=== PATIENT | female | born 1940 | race Caucasian/White ===

== ENCOUNTER 2018-09-16 06:03 | Day surgery (SDC) | payer MEDICARE, OTHER ==
[2018-09-16] MEDS: Sodium Chloride 0.9% 1,000 ML IV SCH ×3 (06:25→19:11)
[2018-09-16] MEDS ORDERED: Lidocaine 1% with EPINEPHrine 1:100,000 50 ML MDV ONE (06:49)
[2018-09-16] MEDS ORDERED: Bupivacaine 0.5% 50 ML MDV ONE (06:49)
[2018-09-16] MEDS ORDERED: Isosulfan Blue 5 ML SDV ONE (06:57)
[2018-09-16] MEDS ORDERED: ceFAZolin 2 GM in Premix Bag 1 BAG IV ONE (08:00)
[2018-09-16] MEDS ORDERED: Lidocaine 1% 20 ML MDV INJECT ONE (08:15)
[2018-09-16] MEDS ORDERED: Neostigmine Methylsulfate 1 MG/ML 5 ML Syringe ONE (08:26)
[2018-09-16] MEDS ORDERED: Ondansetron 4 MG/2 ML SDV ONE (08:26)
[2018-09-16] MEDS ORDERED: fentaNYL 250 MCG/5 ML SDV ONE (08:26)
[2018-09-16] MEDS ORDERED: Rocuronium 50 MG/5 ML Vial ONE (08:26)
[2018-09-16] MEDS ORDERED: Glycopyrrolate 0.2 MG/ML 5 ML MDV ONE (08:26)
[2018-09-16] MEDS ORDERED: Dexamethasone 4 MG/ML SDV ONE (08:26)
[2018-09-16] MEDS ORDERED: Propofol 200 MG/20 ML SDV ONE (08:26)
[2018-09-16] MEDS ORDERED: Ondansetron 4 MG Tab.DIS PO PRN (08:54)
[2018-09-16] MEDS ORDERED: Benzocaine/Cetylpyridinium/Menthol Lozenge MUCMEM PRN (08:54)
[2018-09-16] MEDS ORDERED: Promethazine 25 MG/ML SDV IM PRN (08:54)
[2018-09-16] MEDS ORDERED: Ondansetron 4 MG/2 ML SDV IVPUSH PRN (08:54)
[2018-09-16] MEDS ORDERED: diphenhydrAMINE 50 MG/ML SDV IVPUSH PRN (08:54)
[2018-09-16] MEDS ORDERED: Acetaminophen/HYDROcodone 325-5 MG Tab PO PRN ×3 (08:54)
[2018-09-16] MEDS ORDERED: fentaNYL 100 MCG/2 ML SDV IVPUSH PRN ×4 (08:54)
[2018-09-16] MEDS ORDERED: hydrOXYzine HCl 100 MG/2 ML SDV IM PRN (08:54)
[2018-09-16] MEDS ORDERED: ePHEDrine 50 MG/ML SDV ONE (09:06)
[2018-09-16] MEDS ORDERED: fentaNYL/Normal Saline 600 MCG/30 ML PCA Vial IV PRN (09:08)
[2018-09-16] MEDS ORDERED: Naloxone 0.4 MG/ML SDV IVPUSH PRN (09:08)
[2018-09-16] MEDS ORDERED: Lidocaine 2% Jelly 30 ML Tube ONE (10:24)
--- NOTE | 2018-09-16 13:52 | NM ---
Lymphoscintigraphy CLINICAL HISTORY: Right breast carcinoma FINDINGS: Scintigraphic images were obtained over the upper chest following subcuticular periareolar injections by Dr. Briones with a total dose of 1.6 mCi of technetium 99m sulfur colloid. Scintigraphic images show [artifact at the periareolar region. There is a small nodular focus in the upper outer region of the breast towards the axillary tail which is felt to be a sentinel node IMPRESSION: Lymphoscintigraphy described above
[2018-09-16] MEDS: ceFAZolin 2 GM in Premix Bag 1 BAG IV SCH (15:18)
[2018-09-16] MEDS: Ketorolac 30 MG/ML SDV IM SCH ×3 (15:18→21:47)
[2018-09-16] MEDS: Enoxaparin 40 MG/0.4 ML Syringe SUBCUT SCH (15:18)
[2018-09-16] MEDS: Acetaminophen/HYDROcodone 325-5 MG Tab PO PRN (19:35)
[2018-09-17] MEDS: ceFAZolin 2 GM in Premix Bag 1 BAG IV SCH (00:24)
[2018-09-17] MEDS: Ketorolac 30 MG/ML SDV IM SCH ×2 (02:07→08:56)
[2018-09-17] MEDS: Acetaminophen/HYDROcodone 325-5 MG Tab PO PRN (03:20)
[2018-09-17] MEDS: Sodium Chloride 0.9% 1,000 ML IV SCH (03:26)
[2018-09-17] MEDS ORDERED: Metoprolol Succinate 50 MG Tab.ER PO SCH (09:00)
[2018-09-17] MEDS ORDERED: Multivitamins with Iron/Calcium/Folic Acid/Minerals Tab PO SCH (09:00)
[2018-09-17] MEDS ORDERED: buPROPion 150 MG Tab.SR PO SCH (09:00)
[2018-09-17] MEDS ORDERED: Lisinopril 10 MG Tab PO SCH (09:00)
[2018-09-17] MEDS ORDERED: Hydrochlorothiazide 25 MG Tab PO SCH (09:00)
[2018-09-17] MEDS ORDERED: Calcium Carbonate/Vitamin D3 1500 MG-400 Units Tab PO SCH (09:00)
[2018-09-17] MEDS ORDERED: Aspirin 81 MG Tab.EC PO SCH (09:00)
[2018-09-17] MEDS ORDERED: Ascorbic Acid 500 MG Tab PO SCH (09:00)
[2018-09-17] MEDS ORDERED: Fish Oil/Omega-3 Fatty Acids 1 Gm Cap PO SCH (09:00)
--- NOTE | 2018-09-17 09:09 | PN ---
DATE OF SERVICE: 09/17/2018 SUBJECTIVE: The patient is doing quite well today. Pain is well controlled on essentially no narcotics. No nausea, vomiting, shortness of breath, or chest pain. OBJECTIVE: VITAL SIGNS: Stable, afebrile per nursing report. CARDIOVASCULAR: Regular rhythm and rate. RESPIRATORY: Lungs are clear to auscultation bilaterally. SKIN: Dressings are intact with no evidence of strike through. Drain output is serosanguineous and acceptable limits. LABORATORY DATA: Laboratory results show acceptable norms. ASSESSMENT: Status post mastectomy. PLAN: The patient continues through her day. She is on regular diet, home medications. She will be evaluated later today for possible discharge. Mathew Briones MD /[id number]
[2018-09-17] MEDS ORDERED: Levothyroxine 100 MCG Tab PO SCH (11:00)
[2018-09-17] MEDS ORDERED: Levothyroxine 25 MCG Tab PO SCH (11:00)
--- NOTE | 2018-09-17 13:24 | OR ---
DATE OF PROCEDURE: 09/16/2018 SURGEON: Mathew Briones MD PROCEDURES: 1. Radioactive isotope injection (technetium-99m) to evaluate sentinel node, right breast. 2. Lymphazurin blue dye injection to evaluate sentinel node, right axilla. COMPLICATIONS: None. HEALTH TECHNICAL WRITER: None. PREOPERATIVE DIAGNOSIS: Breast cancer. POSTOPERATIVE DIAGNOSIS: Breast cancer. RISKS: Risks, benefits, alternatives, and limitations including, but not limited to infection, bleeding, and allergic reactions were also explained to the patient, who wished to proceed. PROCEDURE IN DETAIL: The patient was placed in supine position. The right breast was readily identified. These would be periareolar injections. The technetium was injected in four separate aliquots in the periareolar fashion. This was performed in the Nuclear Medicine suite. With respect to Lymphazurin blue, this was also periareolar injection and total of 4 mL would be injected in subcutaneous fashion in four separate locations. The patient tolerated the procedure well. Mathew Briones MD /[id number]
[2018-09-17] MEDS: Enoxaparin 40 MG/0.4 ML Syringe SUBCUT SCH (14:25)
--- NOTE | 2018-09-17 15:08 | PCM.CONS ---
H&P History of Present Illness - General Date of Service: 09/17/18 Admit Problem/Dx: Admission Diagnosis/Problem Admission Diagnosis/Problem Breast lump Source of Information: Patient History Limitations: Reports: No Limitations - History of Present Illness Initial Comments - Free Text/Narative: Cally was admitted yesterday for a right mastectomy. I was asked to see her today regarding left-sided weakness as well as numbness and tingling that started at 2:10 PM today. Patient reports acute onset of left arm numbness and tingling as well as left leg numbness and tingling while she was sitting in the chair. This was associated with weakness of both the arm and the leg as well as some difficulty with coordination. She does not report headache, blurry vision or difficulty with speech. She was unable to put any weight on the leg when trying to get from the chair back into bed. No complaints of chest pain or shortness of breath. Mastectomy pain has been well-controlled. No history of cerebrovascular disease or atrial fibrillation. - Related Data Allergies/Adverse Reactions: Allergies Allergy/AdvReac Type Severity Reaction Status Date / Time No Known Allergies Allergy Verified 09/16/18 06:47 Home Medications: Home Meds Acetaminophen 3 tab PO Q4HR PRN 09/13/18 [History] Ascorbic Acid [Acerola C] 500 mg PO DAILY 09/13/18 [History] Aspirin [Halfprin] 81 mg PO DAILY 09/13/18 [History] Calcium Carbonate/Vitamin D3 [Calcium Carbonate/Vitamin D 600 MG-200 Unit] 1 tab PO BID 09/13/18 [History] Garlic 1,500 mg PO DAILY 09/13/18 [History] Levothyroxine 175 mcg PO ACBREAKFAST 09/13/18 [History] Lisinopril [Prinivil] 10 mg PO DAILY 09/13/18 [History] Metoprolol Succinate [Toprol XL 50mg] 50 mg PO DAILY 09/13/18 [History] Multivitamin [Multi-Vitamin Daily] 1 each PO DAILY 09/13/18 [History] [place]-3/DHA/Epa/Fish Oil [[place]-3 Fish Oil 1,000 MG Sfgl] 1,000 mg PO DAILY [History] Simvastatin [Zocor] 20 mg PO BEDTIME 09/13/18 [History] buPROPion [buPROPion XL] 150 mg PO BID 09/13/18 [History] hydroCHLOROthiazide [Hydrochlorothiazide] 25 mg PO DAILY 09/13/18 [History] Past Medical History Cardiovascular History: Reports: High Cholesterol, Hypertension CHEMICAL DEPENDENCY NURSE History: Reports: Oncologic (Cancer) History: Reports: Breast - Infectious Disease History Infectious Disease History: Reports: Chicken Pox, Measles, Mumps - Past Surgical History HEENT Surgical History: Reports: Adenoidectomy, Cataract Surgery, Tonsillectomy Female Surgical History: Reports: Hysterectomy, Mastectomy Endocrine Surgical History: Reports: Thyroidectomy Musculoskeletal Surgical History: Reports: Hip Replacement, Knee Replacement Social & Family History - Family History Family Medical History: Noncontributory - Tobacco Use Smoking Status *Q: Former Smoker Used Tobacco, but Quit: Yes Month/Year Tobacco Last Used: 1983 - Caffeine Use Caffeine Use: Reports: Coffee - Alcohol Use Alcohol Use History: No - Recreational Drug Use Recreational Drug Use: No H&P Review of Systems - Review of Systems: Review Of Systems: See Below Free Text/Narrative: A complete 12 point review of systems was obtained. Pertinent positives and negatives are noted in the history of present illness. All other systems were reviewed and were negative except as noted. Exam - Exam Exam: See Below - Vital Signs Vital Signs: Last Vital Signs Temp 36.1 C 09/17/18 14:18 Pulse 82 09/17/18 14:18 Resp 18 09/17/18 14:18 BP 153/78 H 09/17/18 14:18 Pulse Ox 95 09/17/18 14:18 Weight: 111.72 kg - Exam Quality Assessment: No: Supplemental Oxygen General: Alert, Oriented, Cooperative. No: Mild Distress HEENT: Conjunctiva Clear, Mucosa Moist & [place]. No: Scleral Icterus Neck: Supple. No: Lymphadenopathy Lungs: Clear to Auscultation, Normal Respiratory Effort Cardiovascular: Regular Rate, Regular Rhythm GI/Abdominal Exam: Soft, No Distention Extremities: No Pedal Edema, Other (Right arm and shoulder wrapped with JOSHUA bandages) Skin: Warm, Dry Neuro Extensive - Mental Status: Alert, Oriented x3, Nl Response to Commands Neuro Extensive - Motor, Sensory, Reflexes: Facial palsy (L), Abnormal Motor ( left arm and leg much weaker than on the right ). No: Dysarthria, Tremor Psychiatric: Alert, Normal Affect - Patient Data Lab Results Last 24 hrs: Laboratory Results - last 24 hr 09/17/18 09/17/18 Range/Units 04:50 04:50 WBC 16.0 H (4.5-11.0) K/uL RBC 3.67 (3.30-5.50) M/uL Hgb 11.1 L (12.0-15.0) g/dL Hct 35.9 L (36.0-48.0) % MCV 98 (80-98) fL MCH 30 (27-31) pg MCHC 31 L (32-36) % Plt Count 354 (150-400) K/uL Sodium 139 L (140-148) mmol/L Potassium 4.0 (3.6-5.2) mmol/L Chloride 105 (100-108) mmol/L Carbon Dioxide 28 (21-32) mmol/L Anion Gap 10.0 (5.0-14.0) mmol/L BUN 22 H (7-18) mg/dL Creatinine 1.1 H (0.6-1.0) mg/dL Est Cr Clr Drug Dosing 41.75 mL/min Estimated GFR (MDRD) 48 L (>60) Glucose 110 H (74-106) mg/dL Calcium 8.3 L (8.5-10.1) mg/dL Result Diagrams: 09/17/18 04:50 09/17/18 04:50 Imaging Impressions Last 24 hrs: Head CT - images personally reviewed - normal non-contrast head ct, no mass, infarct or lesion Consult PN Assessment/Plan POD#: 1 (1) S/P right mastectomy SNOMED Code(s): 093981303, 696190503 Code(s): Z90.11 - ACQUIRED ABSENCE OF RIGHT BREAST AND NIPPLE Current Visit : Yes (2) Acute CVA (cerebrovascular accident) SNOMED Code(s): 491628367, 268939313 Code(s): I63.9 - CEREBRAL INFARCTION, UNSPECIFIED Current Visit: Yes Problem List Initiated/Reviewed/Updated: Yes My Orders Last 24 Hours: My Active Orders 09/17/18 14:38 Head wo Cont [CT] Routine Plan: ASSESSMENT AND RECOMMENDATIONS - Right CVA - acute with onset at 1415 today. Sx's of left arm and leg weakness as well as signs including facial droop and mild speech troubles. Exam c/w acute CVA. Risk factors include HTN and dyslipidemia. Head Ct negative. CT angio of the head with no large vessel occlusion. Pt has received aspirin before leaving. Discussed with Neuro and Interventional Neuro. Not a candidate for TPA with surgery yesterday. Planning transfer to tertiary center. -transfer to [facility] Griffin Fraga MD Requesting Provider: Dr Briones Date Consult Requested: 09/17/18 Reason for Consult: left sided weakness Patient History Reviewed: Yes Admission H&P Reviewed: No Notified Requestor: Yes Time Spent (in minutes): 90
--- NOTE | 2018-09-17 15:19 | CRLCT ---
INDICATION: Left-sided weakness. COMPARISON: None available. TECHNIQUE: CT examination of the head was performed with 3 mm thick axial sections without intravenous contrast. Images were obtained from the vertex of the skull through the skull base, and I examined the images with the brain and bone windows. Please note that all CT scans at this facility use dose modulation, iterative reconstruction, and/or weight-based dosing when appropriate to reduce radiation dose to as low as reasonably achievable. FINDINGS: : The brain is normal in appearance for the patient`s age on today`s study, with no sign of mass lesion, mass effect, hemorrhage, or edema. There is mild dilatation of the ventricles and sulci representing age-appropriate atrophy. There is mild periventricular and subcortical white matter hypodensity from age appropriate small vessel ischemia. There are changes of right cataract surgery. The orbits are otherwise normal in appearance. The visualized portions of the paranasal sinuses and mastoids are clear. The osseous structures are normal in their appearance with no sign of abnormality in the skull base or calvarium. IMPRESSION: Normal noncontrast CT of the head for the patient`s age. Mild, age-appropriate atrophy and mild small vessel ischemic changes. Please note that all CT scans at this facility use dose modulation, iterative reconstruction, and/or weight-based dosing when appropriate to reduce radiation dose to as low as reasonably achievable. Dictated by Dario Florence MD @ Sep 17 2018 3:14PM Signed by Dr. Dario Florence @ Sep 17 2018 3:16PM
[2018-09-17] MEDS ORDERED: Sodium Chloride 0.9% 100 ML IV ONE (15:48)
[2018-09-17] MEDS ORDERED: Sodium Chloride 0.9% 10 ML Syringe FLUSH PRN (15:48)
[2018-09-17] MEDS ORDERED: Iopamidol 755 Mg/ML 100 ML Bottle IV SCH (16:00)
--- NOTE | 2018-09-17 16:54 | CRLCT ---
INDICATION: Left-sided weakness. TECHNIQUE: High-resolution axial CT images were acquired through the head following the rapid intravenous administration of iodinated contrast. Multiplanar MIPS and 3D reconstructions of the cranial vasculature performed as well. FINDINGS: There is no large vessel occlusion or significant intracranial stenosis. No aneurysm or vascular malformation is identified. The underlying brain parenchyma is unremarkable at CTA. IMPRESSION: No large vessel occlusion. No acute intracranial abnormality by CTA. Please note that all CT scans at this facility use dose modulation, iterative reconstruction, and/or weight-based dosing when appropriate to reduce radiation dose to as low as reasonably achievable. Dictated by Kaden Goodwin MD @ Sep 20 2018 2:31PM Signed by Dr. Kaden Goodwin @ Sep 20 2018 3:26PM
[2018-09-17] MEDS ORDERED: Aspirin 81 MG Tab.Chew PO ONE (16:58)
--- NOTE | 2018-09-17 17:06 | PCM.DCSUM1 ---
Discharge Summary - Hospital Course Brief History: 78 female with hx of HTN, dyslipidemia and recent diagnosis of breast cancer who was admitted 09/16 after an uncomplicated modified radical mastectomy. Diagnosis: Stroke: Yes Modified Hamilton Scale: Mod.Sev.Disability ;Unable to Walk/Attend Bodily Needs W/ O Assistance Modified Hamilton Scale Score: 4 - Discharge Data Discharge Date: 09/17/18 Discharge Disposition: DC/Tfer to Acute Hospital 02 Condition: Stable - Discharge Diagnosis/Problem(s) (1) S/P right mastectomy SNOMED Code(s): 585829262, 719528721 ICD Code: Z90.11 - ACQUIRED ABSENCE OF RIGHT BREAST AND NIPPLE Status: Acute Current Visit: Yes (2) Acute CVA (cerebrovascular accident) SNOMED Code(s): 902980761, 450174864 ICD Code: I63.9 - CEREBRAL INFARCTION, UNSPECIFIED Status: Acute Current Visit: Yes - Patient Summary/Data Consults: Consultations 09/16/18 08:55 Consult to Case Management/Barrel And Receiver Aligner [CONS] Routine Comment: Physician Instructions: Consult Reach to Recovery post mastectomy Service(s) to be Consulted: Case Management Reason for Consult: Status post mastectomy Special Instructions: Consult Reach to Recovery PT Evaluation and Treatment [CONS] Routine Please Evaluate and Treat. PT Reason for Consult: Other (Type Response) Special Instructions: Status post Mastectomy This query below is only for informational purposes and is not editable. Respiratory Care Assess and Treatment [CONS] Routine Comment: Physician Instructions: Pneumonia Prevention post- op 09/17/18 14:40 Consult to Physician [CONS] Urgent Consulting Provider: Griffin Fraga Call Completed to Consulting Physician: Yes Reason for Consult: Numbness, tingling, weakness, left side. Person Notified: Dr. Fraga Date Notified: 09/17/18 Time Notified: 14:37 Hospital Course: Cally was admitted 09/16 after a modified radical mastectomy with sentinel lymph node biopsy and axillary dissection. She had an uneventful postoperative course. On the afternoon of plan discharge the patient he suddenly developed left arm numbness and left leg numbness with tingling around 2:15 PM. Over the next 15 minutes the symptoms progressed to include left arm and left leg weakness. I was contacted to see the patient about 20 minutes after symptom onset. A stat noncontrast head CT was obtained which was unremarkable. At this time I contacted [facility] to talk to neurology and interventional neurology. They recommended a CT angiogram of the brain since the patient was not a candidate for TPA. The CT scan was obtained with IV contrast and did not show any large vessel occlusions. I talked to interventional neurology again at this point. Patient has had progression of symptoms since onset and now has some mild difficulty with speech along with progressive left arm and leg weakness. I think she would benefit from transfer to a higher level of care for specialty evaluation. She is stable at this time and the benefits of transfer far the risks. She has received a total of 324 mg of aspirin today. Vital signs have been stable. The patient will be transferred to [facility] for MRI and additional evaluation and treatment. - Patient Instructions Diet: Usual Diet as Tolerated Activity: No Lifting Over 20 Pounds Showering/Bathing: May Shower in 3 Days Wound/Incision Care: Keep Operative Site/Wound Site Clean and Dry, Do NOT Change Dressing Notify Provider of: Fever, Increased Pain, Swelling and Redness, Drainage, Nausea and/or Vomiting Other/Special Instructions: Appointment with Dr. Briones Tuesday September 18, 2018 at [facility] at 11:45 AM. - Discharge Plan *PRESCRIPTION DRUG MONITORING PROGRAM REVIEWED*: Not Applicable *COPY OF PRESCRIPTION DRUG MONITORING REPORT IN PATIENT SNEHAL: Not Applicable Home Medications: Home Meds Acetaminophen 3 tab PO Q4HR PRN 09/13/18 [History] Ascorbic Acid [Acerola C] 500 mg PO DAILY 09/13/18 [History] Aspirin [Halfprin] 81 mg PO DAILY 09/13/18 [History] Calcium Carbonate/Vitamin D3 [Calcium Carbonate/Vitamin D 600 MG-200 Unit] 1 tab PO BID 09/13/18 [History] Garlic 1,500 mg PO DAILY 09/13/18 [History] Levothyroxine 175 mcg PO ACBREAKFAST 09/13/18 [History] Lisinopril [Prinivil] 10 mg PO DAILY 09/13/18 [History] Metoprolol Succinate [Toprol XL 50mg] 50 mg PO DAILY 09/13/18 [History] Multivitamin [Multi-Vitamin Daily] 1 each PO DAILY 09/13/18 [History] [place]-3/DHA/Epa/Fish Oil [[place]-3 Fish Oil 1,000 MG Sfgl] 1,000 mg PO DAILY [History] Simvastatin [Zocor] 20 mg PO BEDTIME 09/13/18 [History] buPROPion [buPROPion XL] 150 mg PO BID 09/13/18 [History] hydroCHLOROthiazide [Hydrochlorothiazide] 25 mg PO DAILY 09/13/18 [History] Oxygen Therapy Mode: Room Air Patient Handouts: Constipation, Adult, Total or Modified Radical Mastectomy, Care After Referrals: Mathew Briones MD [Physician] - - Discharge Summary/Plan Comment DC Time >30 min.: Yes (50 - transfer to acute hospital ) - Patient Data Vitals - Most Recent: Last Vital Signs Temp 36.3 C 09/17/18 16:11 Pulse 85 09/17/18 16:11 Resp 18 09/17/18 16:11 BP 124/70 09/17/18 16:11 Pulse Ox 94 L 09/17/18 16:11 Weight - Most Recent: 111.72 kg I&O - Last 24 hours: Intake & Output 09/17/18 09/17/18 09/17/18 06:59 14:59 22:59 Intake Total 1273 1295 Output Total 540 370 Balance 733 925 Lab Results - Last 24 hrs: Laboratory Results - last 24 hr 09/17/18 09/17/18 Range/Units 04:50 04:50 WBC 16.0 H (4.5-11.0) K/uL RBC 3.67 (3.30-5.50) M/uL Hgb 11.1 L (12.0-15.0) g/dL Hct 35.9 L (36.0-48.0) % MCV 98 (80-98) fL MCH 30 (27-31) pg MCHC 31 L (32-36) % Plt Count 354 (150-400) K/uL Sodium 139 L (140-148) mmol/L Potassium 4.0 (3.6-5.2) mmol/L Chloride 105 (100-108) mmol/L Carbon Dioxide 28 (21-32) mmol/L Anion Gap 10.0 (5.0-14.0) mmol/L BUN 22 H (7-18) mg/dL Creatinine 1.1 H (0.6-1.0) mg/dL Est Cr Clr Drug Dosing 41.75 mL/min Estimated GFR (MDRD) 48 L (>60) Glucose 110 H (74-106) mg/dL Calcium 8.3 L (8.5-10.1) mg/dL Med Orders - Current: Current Medications Hydrocodone Bitart/Acetaminophen ([place] 325-5 Mg) 2 tab PO Q6H PRN PRN Reason: Pain (moderate 4-6) Hydrocodone Bitart/Acetaminophen ([place] 325-5 Mg) 1 tab PO Q6H PRN PRN Reason: Pain (mild 1-3) Last Admin: 09/17/18 03:20 Dose: 1 tab Ascorbic Acid (Vitamin C) 500 mg PO DAILY [facility] Last Admin: 09/17/18 08:57 Dose: 500 mg Aspirin (Halfprin) 81 mg PO DAILY [facility] Last Admin: 09/17/18 08:57 Dose: 81 mg Aspirin (Aspirin) 243 mg PO ONETIME ONE Stop: 09/17/18 16:59 Benzocaine/Menthol (Cepacol Sore Throat) 1 lozenge MUCMEM 5XDAY PRN PRN Reason: Sore Throat Bupropion HCl (Wellbutrin Sr) 150 mg PO BID [facility] Last Admin: 09/17/18 08:56 Dose: 150 mg Calcium Carbonate (Caltrate 600+D 1500 Mg-400 Units) 1 tab PO DAILY [facility] Last Admin: 09/17/18 08:57 Dose: 1 tab Diphenhydramine HCl (Benadryl) 50 mg IVPUSH Q4H PRN PRN Reason: Itching Enoxaparin Sodium (Lovenox) 40 mg SUBCUT Q24H [facility] Last Admin: 09/17/18 14:25 Dose: 40 mg Fentanyl (Sublimaze) 10 mcg IVPUSH Q1H PRN PRN Reason: Pain (mild 1-3) Fentanyl (Sublimaze) 50 mcg IVPUSH Q6H PRN PRN Reason: Pain (moderate 4-6) Fish Oil (Fish Oil) 1 gm PO DAILY [facility] Last Admin: 09/17/18 08:56 Dose: 1 gm Hydrochlorothiazide (Hydrochlorothiazide) 25 mg PO DAILY [facility] Last Admin: 09/17/18 09:00 Dose: 25 mg Hydroxyzine HCl (Vistaril) 100 mg IM Q4H PRN PRN Reason: Nausea Sodium Chloride (Normal Saline) 1,000 mls @ 125 mls/hr IV ASDIRECTED [facility] Last Admin: 09/17/18 03:26 Dose: 125 mls/hr Levothyroxine Sodium (Levothyroxine) 75 mcg PO DAILY@0730 [facility] Last Admin: 09/17/18 10:43 Dose: 75 mcg Levothyroxine Sodium (Synthroid) 100 mcg PO DAILY@0730 [facility] Last Admin: 09/17/18 10:43 Dose: 100 mcg Lisinopril (Prinivil) 10 mg PO DAILY [facility] Last Admin: 09/17/18 09:00 Dose: 10 mg Metoprolol Succinate (Toprol Xl) 50 mg PO DAILY [facility] Last Admin: 09/17/18 08:59 Dose: 50 mg Multivitamins/Minerals (Thera M Plus) 1 tab PO DAILY [facility] Last Admin: 09/17/18 08:57 Dose: 1 tab Ondansetron HCl (Zofran) 4 mg IVPUSH Q6H PRN PRN Reason: Nausea/Vomiting Ondansetron HCl (Zofran Odt) 4 mg PO Q6H PRN PRN Reason: Nausea/Vomiting Promethazine HCl (Phenergan) 25 mg IM Q6H PRN PRN Reason: Nausea Simvastatin (Zocor) 20 mg PO BEDTIME [facility] Discontinued Medications Bupivacaine HCl (Marcaine 0.5%) Confirm Administered Dose 50 ml .ROUTE .STK-MED ONE Stop: 09/16/18 06:50 Last Admin: 09/16/18 09:29 Dose: 10 ml Dexamethasone (Dexamethasone) Confirm Administered Dose 4 mg .ROUTE .STK-MED ONE Stop: 09/16/18 08:27 Ephedrine Sulfate (Ephedrine Sulfate) Confirm Administered Dose 50 mg .ROUTE .STK-MED ONE Stop: 09/16/18 09:07 Fentanyl (Sublimaze) Confirm Administered Dose 250 mcg .ROUTE .STK-MED ONE Stop: 09/16/18 08:27 Fentanyl Citrate (Fentanyl In Ns 20 Mcg/Ml 30 Ml Practice Lead) 0 mcg IV ASDIRECTED PRN; Protocol PRN Reason: Pain Last Admin: 09/16/18 11:01 Dose: 600 mcg Glycopyrrolate (Robinul) Confirm Administered Dose 1 mg .ROUTE .STK-MED ONE Stop: 09/16/18 08:27 Cefazolin Sodium/Dextrose 2 gm (/ Premix) 50 mls @ 100 mls/hr IV ONETIME ONE Stop: 09/16/18 08:29 Last Admin: 09/16/18 08:42 Dose: 100 mls/hr Cefazolin Sodium/Dextrose 2 gm (/ Premix) 50 mls @ 100 mls/hr IV Q8H [facility] Stop: 09/17/18 00:29 Last Admin: 09/17/18 00:24 Dose: 100 mls/hr Sodium Chloride (Normal Saline) 100 mls @ 3 mls/sec IV ONETIME ONE Stop: 09/17/18 15:49 Last Admin: 09/17/18 16:12 Dose: 3 mls/sec Iopamidol (Isovue-370 (76%)) 100 ml IV . DIRECTED SAMRA Stop: 09/17/18 16:01 Last Admin: 09/17/18 16:12 Dose: 100 ml Isosulfan Blue (Lymphazurin 1%) Confirm Administered Dose 5 ml .ROUTE .STK-MED ONE Stop: 09/16/18 06:58 Last Admin: 09/16/18 09:00 Dose: 5 ml Ketorolac Tromethamine (Toradol) 30 mg IM Q6H [facility] Stop: 09/17/18 08:01 Last Admin: 09/17/18 08:56 Dose: Not Given Lidocaine HCl (Xylocaine 1%) 20 ml INJECT ONETIME ONE Stop: 09/16/18 08:16 Last Admin: 09/16/18 08:10 Dose: 20 ml Lidocaine HCl (Xylocaine 2% Jelly) Confirm Administered Dose 30 ml .ROUTE .STK- MED ONE Stop: 09/16/18 10:25 Last Admin: 09/16/18 10:27 Dose: 30 ml Lidocaine/Epinephrine (Xylocaine 1% With Epinephrine 1:100,000) Confirm Administered Dose 50 ml .ROUTE .STK-MED ONE Stop: 09/16/18 06:50 Last Admin: 09/16/18 09:29 Dose: 10 ml Naloxone HCl (Narcan) 0.1 mg IVPUSH Q2M PRN PRN Reason: Respiratory Distress Neostigmine Methylsulfate (Neostigmine) Confirm Administered Dose 5 mg .ROUTE .STK-MED ONE Stop: 09/16/18 08:27 Ondansetron HCl (Zofran) Confirm Administered Dose 4 mg .ROUTE .STK-MED ONE Stop: 09/16/18 08:27 Propofol (Diprivan 20 Ml) Confirm Administered Dose 200 mg .ROUTE .STK-MED ONE Stop: 09/16/18 08:27 Rocuronium [place] (Zemuron) Confirm Administered Dose 50 mg .ROUTE .STK-MED ONE Stop: 09/16/18 08:27 Sodium Chloride (Saline Flush) 10 ml FLUSH ONETIME PRN PRN Reason: PER RADIOLOGY PROTOCOL Stop: 09/17/18 15:49 Last Admin: 09/17/18 16:12 Dose: 10 ml - Exam Quality Assessment: Denies: Supplemental Oxygen General: Reports: Alert, Oriented, Cooperative, No Acute Distress HEENT: Reports: Pupils Equal Neck: Reports: Supple Lungs: Reports: Clear to Auscultation, Normal Respiratory Effort Cardiovascular: Reports: Regular Rate, Regular Rhythm, No Murmurs GI/Abdominal Exam: Normal Bowel Sounds, Soft, No Distention Extremities: No Pedal Edema, Other (right arm and shoulder wrapped with JOSHUA wraps. surgical drain with small amount of light red bloody fluid ). No: Increased Warmth Skin: Reports: Warm, Dry Neurological: Reports: Normal Speech, Other (left facial droop ). Denies: Strength Equal Bilateral (left arm and leg much weaker than the right. ) Psy/Mental Status: Reports: Alert, Normal Affect
[2018-09-17] MEDS ORDERED: Simvastatin 20 MG Tab PO SCH (21:00)
--- NOTE | 2018-09-18 07:41 | OR ---
DATE OF PROCEDURE: 09/16/2018 SURGEON: Mathew Briones MD PROCEDURES: 1. Simple mastectomy (specimen, right breast, single stitch superior, double stitch laterally). 2. [place] node #1 excision. 3. [place] node #2 excision. 4. Axillary dissection. COMPLICATIONS: None. LAST SCOURER: None. ANESTHESIA: General/local. ESTIMATED BLOOD LOSS: 50 mL. RISKS: Risks, benefits, alternatives, and limitations including, but not limited to infection, bleeding, and seroma formation. We also discussed the axillary dissection, including associated lymphoma. The patient and I talked in the preoperative area, and the patient did not want an axillary dissection, unless there was gross and large disease consistent with macrometastasis. I was instructed by the patient, if micrometastasis or a false-negative at a later date, that she would not accept axillary dissection. FINDINGS: 1. Simple mastectomy without complication. 2. 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 PROCEDURE IN DETAIL: The patient was placed in supine position. A curvilinear and teardrop- type incision would be made by tenting and evaluating the breast for minimum skin tension. This was then marked out with a surgical marker. A 15 blade was used to circumscribe the breast. This was then carried down with electrocautery. Rakes were used to elevate the skin perpendicular to the table, thus creating a very minimum residual fat tissue of the breast. This would then be carried down to the pectoralis muscle. As this continued, this was a kiferq-lc-rhaoxox type procedure. Minimal bleeding was controlled by electrocautery and/or DeBakeys. Once the tail of Young was approached, the gamma probe was used to identify the lymph node. The sentinel node would be identified with a count of 187. This was also bright blue. This was sent for sentinel node evaluation. A second sentinel node was in close proximity to the chain, although this was not technically a true sentinel node, as it was not blue and counts were less than 10%. This was in close proximity and could have lymphatic association; therefore, this was labeled as a sentinel node. These will then be sent for frozen section. Unfortunately, frozen section revealed macrometastasis. Due to our patient's previous conversation preoperatively, I updated the patient's , and he again expressed a verbal agreement to perform axillary dissection. Axillary dissection was then commenced through the mastectomy incision. The patient's nodes were identified and sent to Pathology. These were all clipped and transected. The long thoracic and thoracodorsal nerves were identified. However, the patient's axillary contents were sparse in nature. The dissection margins were the latissimus dorsi, subcutaneous tissue, axillary vein, and pectoralis muscles. These were only level 1 and level 2 nodes. Once this was complete, two 10 flat Nikunj-Freedman drains were placed within the tissues and thoroughly irrigated. After thorough irrigation, 3-0 Vicryl sutures were used to approximate the skin. These were closed with rafiq. Two horizontal mattress sutures were also placed. The patient tolerated the procedure well. Mathew Briones MD /[id number]
== END 2018-09-17 17:20 ==
LOC: JP.SDS 06:03 → JP.MS 08:55 → JP.SDS 09-17 17:20
PROVIDERS: ATTEND Surgery
DX: C50.411 Malignant neoplasm of upper-outer quadrant of right female breast (principal); C77.3 Secondary and unspecified malignant neoplasm of axilla and upper limb lymph nodes; I63.9 Cerebral infarction, unspecified; I10 Essential (primary) hypertension; E78.5 Hyperlipidemia, unspecified; M19.90 Unspecified osteoarthritis, unspecified site; Z90.12 Acquired absence of left breast and nipple; Z17.0 Estrogen receptor positive status [ER+]; Z85.3 Personal history of malignant neoplasm of breast; Z87.891 Personal history of nicotine dependence
CPT/HCPCS: 36415; 70450; 70496; 78195; 78195-26; 80048; 85027; 86850; 86900; 86901; 94762; 97161-GP; A9270-GY; A9541; J0690; J1100; J1650; J1885; J2001; J2405; J2704; J2710; J3010; J3490; J7030; Q9967; Q9968